=== PATIENT | female | born 1985 | race Caucasian/White ===

== ENCOUNTER 2020-10-17 05:33 | Observation (INO) | payer BC ==
[2020-10-14 13:04] LABS: APPEARANCE,URINE SLIGHTLY-CLOUDY; BILIRUBIN,URINE NEGATIVE (NEGATIVE); COLOR,URINE YELLOW; GLUCOSE, URINE NEGATIVE (NEGATIVE); KETONES,URINE NEGATIVE (NEGATIVE); LEUKOCYTE ESTERASE,URINE TRACE (NEGATIVE); NITRITE,URINE NEGATIVE (NEGATIVE); PROTEIN,URINE 30 mg/dL (NEGATIVE); UROBILINOGEN,URINE NEGATIVE mg/dL (<2.0)
[2020-10-14 13:17] LABS: HEMATOCRIT 42.9 % (36.0-47.0); HEMOGLOBIN 14.6 g/dL (12.0-15.5); MEAN CORPUSCULAR HEMOGLOBIN 30.5 pg (27.0-33.4); MEAN CORPUSCULAR HGB CONC 34.1 g/dL (32.0-36.0); MEAN CORPUSCULAR VOLUME 90 fl (80-97); PLATELET COUNT 478 10^3/uL (150-450); RED CELL DISTRIBUTION WIDTH 13.9 % (11.5-14.0); WHITE BLOOD COUNT 11.3 10^3/uL (4.0-10.5)
[2020-10-14 13:45] LABS: ALBUMIN 4.8 g/dL (3.5-5.0); ALKALINE PHOSPHATASE 60 U/L (38-126); ANION GAP 12 (5-19); ASPARTATE AMINO TRANSFERASE 26 U/L (14-36); BILIRUBIN,DIRECT 0.3 mg/dL (0.0-0.4); BILIRUBIN,TOTAL 0.8 mg/dL (0.2-1.3); BLOOD UREA NITROGEN 13 mg/dL (7-20); CALCIUM 9.9 mg/dL (8.4-10.2); CARBON DIOXIDE 25 mmol/L (22-30); CHLORIDE 102 mmol/L (98-107); GLUCOSE 91 mg/dL (75-110); POTASSIUM 4.5 mmol/L (3.6-5.0); TOTAL PROTEIN 7.8 g/dL (6.3-8.2)
[~2020-10-17 05:33] MED LIST: CEFAZOLIN 2 GM/D5W RTU 2 GM/50 ML RTUPB IV ONE; CEFAZOLIN 2 GM/D5W RTU 2 GM/50 ML RTUPB IV PRN; LACTATED RINGERS 1000 ML IV PRN; LIDOCAINE 0.5% INJ-PF (5 MG/ML) 50 ML SDV SUBCUT PRN
[2020-10-17] MEDS ORDERED: FENTANYL CITRATE INJ/PF 250 MCG/5 ML AMPULE ONE (06:39)
[2020-10-17] MEDS ORDERED: PROPOFOL INJ 200 MG/20 ML VIAL IV ONE (06:40)
[2020-10-17] MEDS ORDERED: SUGAMMADEX SODIUM 200 MG/2 ML SDV IV ONE (06:40)
[2020-10-17] MEDS ORDERED: EPHEDRINE SULFATE INJ 50 MG/1 ML AMPULE ONE (06:40)
[2020-10-17] MEDS ORDERED: MORPHINE SULFATE 10 MG/ML INJ ONE (06:40)
[2020-10-17] MEDS ORDERED: MIDAZOLAM 2 MG/2 ML INJ ONE (06:40)
[2020-10-17] MEDS ORDERED: LIDOCAINE 2% INJ (20 MG/ML) 20 ML MDV ONE (06:43)
[2020-10-17] MEDS ORDERED: SCOPOLAMINE HYDROBROMIDE 1.5 MG PATCH.TD72 ONE (07:19)
[2020-10-17] MEDS ORDERED: ONDANSETRON HCL INJ/PF 4 MG/2 ML SDV IV PRN (08:16)
[2020-10-17] MEDS ORDERED: PROMETHAZINE HCL INJ 25 MG/1 ML VIAL IV PRN ×2 (08:16)
[2020-10-17] MEDS ORDERED: FENTANYL CITRATE INJ/PF 100 MCG/2 ML AMPUL IV PRN ×3 (08:16)
[2020-10-17] MEDS ORDERED: OXYCODONE-ACETAMINOPHEN 5-325 MG TABLET PO PRN ×3 (08:16→10:53)
[2020-10-17] MEDS ORDERED: MORPHINE SULFATE 10 MG/ML INJ IV PRN (08:16)
[2020-10-17] MEDS ORDERED: MEPERIDINE HCL/PF INJ 25 MG/1 ML DISP.SYRIN IV PRN (08:16)
[2020-10-17] MEDS ORDERED: DIPHENHYDRAMINE HCL 50 MG/ML VIAL IV PRN (08:16)
--- NOTE | 2020-10-17 09:23 | Operative Report ---
Operative Report DATE OF SURGERY: 10/17/20 PREOPERATIVE DIAGNOSIS: Menometrorrhagia POSTOPERATIVE DIAGNOSIS: Same OPERATION: Robotic assisted total hysterectomy bilateral salpingectomy SURGEON: OSIEL REZA ANESTHESIA: GA TISSUE REMOVED OR ALTERED: Uterus and tubes ESTIMATED BLOOD LOSS: 50 cc PROCEDURE: Placed in a dorsolithotomy position prepped draped sterile fashion. Speculum placed cervix visualized and grasped with single-tooth tenaculum sounded to a depth of 9 cm. The V care was then placed per protocol. Speculum was removed single-tooth tenaculum was removed. Attention turned to the abdomen where a supraumbilical incision was made trocar was introduced with insufflation of the abdomen. There was a small filmy adhesion from the omentum to the anterior abdominal wall noted. To punctures were made lateral to the midline with 5 trochars introduced and a self-report the supra iliac crest on the right was placed. Robot was docked in usual fashion. Using monopolar bipolar cautery the left fallopian tube was divided along the mesosalpinx continue to the utero- ovarian ligament which was cauterized and divided. Procedure to be on the right. The ligament divided with bipolar monopolar cautery. The flap was then created with sharp dissection. The uterus removed by making a circumferential incision using monopolar cautery around the V care ring. The vaginal cuff was then closed with a running suture of 0 Vicryl. It was irrigated with normal saline hemostasis was noted. Urine may clear throughout procedure. Patient tolerated well taken recovery room good condition.
[2020-10-17] MEDS ORDERED: IBUPROFEN 800 MG TABLET PO SCH (10:51)
[2020-10-17] MEDS ORDERED: ONDANSETRON HCL 8 MG TABLET PO PRN (10:52)
[2020-10-17] MEDS ORDERED: MORPHINE SULFATE 10 MG/ML INJ IM PRN (10:59)
[2020-10-17] MEDS ORDERED: DOCUSATE SODIUM 100 MG CAPSULE PO SCH (13:00)
[2020-10-17 14:31] VITALS: BP 104/48
[2020-10-17] MEDS ORDERED: ONDANSETRON HCL INJ/PF 4 MG/2 ML SDV ONE (15:49)
[2020-10-17] MEDS ORDERED: DIPHENHYDRAMINE HCL 50 MG/ML VIAL ONE (15:49)
[2020-10-17] MEDS ORDERED: SUCCINYLCHOLINE CHLORIDE INJ 200 MG/10 ML VIAL ONE (15:49)
[2020-10-17] MEDS ORDERED: ROCURONIUM BROMIDE INJ 50 MG/5 ML VIAL IV ONE (15:49)
[2020-10-17] MEDS ORDERED: DEXAMETHASONE SOD PHOSPHATE INJ 4 MG/1 ML VIAL ONE (15:49)
[2020-10-17] MEDS ORDERED: METOCLOPRAMIDE HCL INJ/PF 10 MG/2 ML SDV ONE (15:49)
[2020-10-17] MEDS ORDERED: KETOROLAC TROMETHAMINE 60 MG/2 ML SDV ONE (15:49)
== END 2020-10-17 17:15 | disposition home or self-care (01) ==
LOC: OROUT 05:33 → 2N 10:03 → OROUT 17:15
PROVIDERS: ADMIT Obstetrics & Gynecology Gynecology; ATTEND Obstetrics & Gynecology Gynecology
DX: N92.1 Excessive and frequent menstruation with irregular cycle (principal); N87.0 Mild cervical dysplasia; N83.8 Other noninflammatory disorders of ovary, fallopian tube and broad ligament; Z90.81 Acquired absence of spleen; Z98.51 Tubal ligation status; Z01.812 Encounter for preprocedural laboratory examination; Z20.828 Contact with and (suspected) exposure to other viral communicable diseases
CPT/HCPCS: 58571; 86900; 86901; 36415; 86850; 85027; 81025; 80053; 81001; 88307 ×2; 00840; G0378; C1758; U0003; J2250; J3490 ×3; J1100; J1200; J1885; J3010; J2765; J0330; J2405; J2704; J0690; C9803; 840; 87635; J2270